=== PATIENT | male | born 1995 | race Caucasian/White ===

== ENCOUNTER 2017-01-28 17:49 | Emergency (ER) | payer OTHER ==
[2017-01-28 18:04] VITALS: BP 130/90
--- NOTE | 2017-01-28 18:46 | ED ---
Back Pain - HPI Summary HPI Summary: 21 male presents with complaints of lower back and tailbone pain after attempting a front flip off of a picnic table just prior to arrival. Patient was brought in by EMS. States he was able to stand and walk after the incident however after about an hour he started to experience increased soreness. Denies neck or head pain/trauma. No LOC. Denies loss of strength and sensation is intact. Denies ecchymosis and deformities. Took Tylenol with some relief about 45 minutes ago. Denies bladder/bowel incontinence and saddle anesthesia. Patient is a resident of [place]. - History of Current Complaint Chief Complaint: EDBackInjuryPain Stated Complaint: BACK PAIN Time Seen by Provider: 01/28/17 18:07 Hx Obtained From: Patient Onset/Duration: Sudden Onset Onset/Duration: Started Hours Ago, Traumatic Timing: Constant Back Pain Location: Is Discrete @ - lower back and tailbone Severity Initially: Mild Severity Currently: Moderate Pain Intensity: 7 Pain Scale Used: 0-10 Numeric Character: Sharp, Aching, Stiffness Aggravating Symptom(s): Movement, Walking Associated Signs And Symptoms: Positive: Negative - Allergies/Home Medications Allergies/Adverse Reactions: Allergies Allergy/AdvReac Type Severity Reaction Status Date / Time No Known Allergies Allergy Verified 05/31/16 12:50 PMH/Surg Hx/FS Hx/Imm Hx Endocrine/Hematology History: Denies: Hx Diabetes, Hx Thyroid Disease Cardiovascular History: Denies: Hx Hypertension Respiratory History: Reports: Hx Sleep Apnea - NO PROBLEMS SINCE TONSILLECTOMY Denies: Hx Asthma, Hx Chronic Obstructive Pulmonary Disease (COPD) GI History: Denies: Hx Ulcer Sensory History: Reports: Hx Contacts or Glasses - GLASSES Denies: Hx Hearing Aid Opthamlomology History: Reports: Hx Contacts or Glasses - GLASSES Neurological History: Reports: Hx Seizures - POSSIBLE ABOUT 2 YEARS AGO, MAY HAVE BEEN AN ANXIETY ATTACK, NO PROBLEMS SI Psychiatric History: Reports: Hx Attention Deficit Hyperactivity Disorder - Surgical History Surgery Procedure, Year, and Place: APPENDECTOMY AGE 2, [place], RT HAND SURGERY Hx Anesthesia Reactions: No Infectious Disease History: No Infectious Disease History: Denies: Hx Hepatitis, Hx Human Immunodeficiency Virus (HIV), Traveled Outside the [place] in Last 30 Days - Family History Known Family History: Positive: Hypertension, Seizure Disorder - Social History Alcohol Use: None Substance Use Type: Reports: None Substance Use Comment - Amount & Last Used: Was in rehab in May 2013, used to smoke marijuana Smoking Status (MU): Light Every Day Tobacco Smoker Type: Cigarettes Amount Used/How Often: 5-10 cigarettes daily Length of Time of Smoking/Using Tobacco: 2.5 years Have You Smoked in the Last Year: Yes Review of Systems Constitutional: Negative Cardiovascular: Negative Respiratory: Negative Gastrointestinal: Negative Positive: Arthralgia, Myalgia - lower back, tailbone Skin: Negative Neurological: Negative Psychological: Normal All Other Systems Reviewed And Are Negative: Yes Physical Exam Triage Information Reviewed: Yes Vital Signs On Initial Exam: Initial Vitals Temp Pulse Resp BP Pulse Ox 98.0 F 80 20 130/90 98 01/28/17 17:59 01/28/17 17:59 01/28/17 17:59 01/28/17 17:59 01/28/17 17:59 Vital Signs Reviewed: Yes Appearance: Positive: Well-Appearing, No Pain Distress, Well-Nourished Skin: Positive: Warm, Skin Color Reflects Adequate Perfusion, Dry Head/Face: Positive: Normal Head/Face Inspection Eyes: Positive: Normal, EOMI, LILIAM, Conjunctiva Clear ENT: Positive: Normal ENT inspection, Hearing grossly normal Neck: Positive: Supple, Nontender, No Lymphadenopathy Respiratory/Lung Sounds: Positive: Clear to Auscultation, Breath Sounds Present Cardiovascular: Positive: Normal, RRR, Pulses are Symmetrical in both Upper and Lower Extremities - 2+ bilateral radial and pedal pulses Abdomen Description: Positive: Nontender Bowel Sounds: Positive: Present Musculoskeletal: Positive: Normal, Strength/ROM Intact - pain with flexion and extension of lumbar spine, however able., Pain @ - on palpation of lumbar spine around L3-S2, Other - no obvious deformities, ecchymosis, step off or crepitus noted. no cervical or thoracic tenderness. sensation intact. strength/sensation intact b/l lower extremities. Negative: Limited @, Interruption @, Edema Left, Edema Right Neurological: Positive: Normal, Sensory/Motor Intact, Alert, Oriented to Person Place, Time, CN Intact II-III, Reflexes Intact, NV Bundle Intact Distally, Normal Gait, Facial Symmetry, Speech Normal Psychiatric: Positive: Normal, Affect/Mood Appropriate - [place] Coma Scale Best Eye Response: 4 - Spontaneous Best Motor Response: 6 - Obeys Commands Best Verbal Response: 5 - Oriented Diagnostics - Vital Signs Vital Signs Temp Pulse Resp BP Pulse Ox 01/28/17 17:59 98.0 F 80 20 130/90 98 - Laboratory Lab Statement: Any lab studies that have been ordered have been reviewed, and results considered in the medical decision making process. - Radiology lumbar spine Xray Interpretation: No Acute Changes - No fracture of the lumbar spine is noted. Radiology Interpretation Completed By: Radiologist sacrum/coccyx Xray Interpretation: No Acute Changes - No fracture of the sacrum is noted. Radiology Interpretation Completed By: Radiologist Back Pain Course/Dx - Course Course Of Treatment: took 2 tylenol before arrival and given ibuprofen before d/ c. x-ray of lumbar and sacral/coccyx obtained and negative. ibuprofen and heat/ ice for pain. aware of worsening signs and symptoms to watch out for. - Diagnoses Differential Diagnosis/HQI/PQRI: Positive: Fracture, Herniated Disc, Strain, Sprain Provider Diagnoses: Low back strain Discharge - Discharge Plan Condition: Stable Disposition: HOME Prescriptions: Ibuprofen TAB* [Motrin TAB* 600 MG] 600 mg PO Q6H PRN #25 tab PRN Reason: Pain Patient Education Materials: Low Back Strain (ED) Referrals: Devante Sampson MD [Primary Care Provider] - Additional Instructions: Take prescribed Ibuprofen to help with pain and inflammation. Ice/Heat as needed and rest. Encourage to refrain from strenuous physical activity until symptoms have subsided. You back will probably continue to become more sore and then progressively should get better. Recommend follow up with PCP to ensure proper healing and if symptoms persist can obtain further imaging. If you pain increases, or you develop new symptoms such as numbness/tingling of your legs and inner thighs or trouble going to the bathroom please seek medical attention immediately.
[2017-01-28] MEDS ORDERED: Ibuprofen TAB* 400 MG ONE (20:01)
[2017-01-28] MEDS ORDERED: Ibuprofen TAB* 400 MG PO ONE (20:03)
--- NOTE | 2017-01-28 20:26 | RAD ---
Indication indication: Back pain. 5 views of the lumbar spine are reviewed. The vertebral bodies appear normal in height. Disc spaces all well-preserved. Pedicles appear intact. IMPRESSION: No fracture of the lumbar spine is noted.
--- NOTE | 2017-01-28 20:27 | RAD ---
Indication: Sacrum and coccyx pain. 2 views of the sacrum and coccyx demonstrates sacral foramina to be patent. No fracture is noted. IMPRESSION: No fracture of the sacrum is noted.
== END 2017-01-28 20:52 | disposition home or self-care (01) ==
LOC: ED 17:49
DX: S39.012A Strain of muscle, fascia and tendon of lower back, initial encounter (principal); M54.5 Low back pain; F17.210 Nicotine dependence, cigarettes, uncomplicated; W08.XXXA Fall from other furniture, initial encounter; Y93.89 Activity, other specified; Y92.89 Other specified places as the place of occurrence of the external cause
CPT/HCPCS: 72110; 72220; 99282; A9270-GY

== ENCOUNTER 2018-01-05 11:37 | Emergency (ER) | payer MEDICAID, OTHER ==
[2018-01-05 11:55] VITALS: BP 129/84
--- NOTE | 2018-01-05 12:00 | UC ---
Skin Complaint HPI - HPI Summary HPI Summary: Pt presents with right arm pain, swelling, and redness since last night. He tells me that he uses IV drugs and has had a skin abscess before - this feels similar. He tries to use clean needles as often as possible, but does reuse at times. He is not interested in quitting today. He denies drainage, bleeding, numbness, or tingling. - History of Current Complaint Hx Obtained From: Patient Onset/Duration: Sudden Onset Skin Exposure Onset/Duration: Days Ago Timing: Constant Onset Severity: Mild Current Severity: Mild Pain Intensity: 4 Pain Scale Used: 0-10 Numeric <Addy Martinez - Last Filed: 01/05/18 14:53> <Lynn Haywood - Last Filed: 01/07/18 08:49> - History of Current Complaint Chief Complaint: UCUpperExtremity Stated Complaint: RED SWOLLEN AREA ON ARM - Allergy/Home Medications Allergies/Adverse Reactions: Allergies Allergy/AdvReac Type Severity Reaction Status Date / Time No Known Allergies Allergy Verified 01/05/18 11:46 Review of Systems Constitutional: Negative Skin: Other - Redness, swelling, pain right arm Respiratory: Negative Cardiovascular: Negative Gastrointestinal: Negative Neurological: Negative Psychological: Negative All Other Systems Reviewed And Are Negative: Yes <Addy Martinez - Last Filed: 01/05/18 14:53> PMH/Surg Hx/FS Hx/Imm Hx Previously Healthy: Yes - Surgical History Surgical History: Yes Surgery Procedure, Year, and Place: APPENDECTOMY AGE 2, [place], RT HAND SURGERY - Family History Known Family History: Positive: Hypertension, Seizure Disorder - Social History Lives: With Family Alcohol Use: None Substance Use Type: Other 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, Denise (E) Smoking Status (MU): Light Every Day Tobacco Smoker Type: Cigarettes Amount Used/How Often: 5-10 cigarettes daily Length of Time of Smoking/Using Tobacco: 2.5 years Have You Smoked in the Last Year: Yes Household Exposure Type: Cigarettes - Immunization History Most Recent Tetanus Shot: UNKNOWN Vaccination Up to Date: Yes <Addy Martinez - Last Filed: 01/05/18 14:53> Physical Exam Triage Information Reviewed: Yes Appearance: Well-Appearing, No Pain Distress, Well-Nourished Vital Signs: Initial Vital Signs Temp 97 F 01/05/18 11:49 Pulse 88 01/05/18 11:49 Resp 20 01/05/18 11:49 BP 129/84 01/05/18 11:49 Pulse Ox 98 01/05/18 11:49 Vital Signs Reviewed: Yes Neck: Positive: Supple, Nontender, No Lymphadenopathy Respiratory: Positive: Lungs clear, Normal breath sounds, No respiratory distress, No accessory muscle use Cardiovascular: Positive: RRR, No Murmur, Pulses Normal - Right radial and ulnar , Brisk Capillary Refill - Right hand and all fingers Musculoskeletal: Positive: Strength Intact - Right elbow, ROM Intact - Right elbow Neurological: Positive: Alert Psychological: Positive: Age Appropriate Behavior Skin: Positive: Other - At the right medical AC there is an area of mild erythema, edema, and tenderness extending down to the proximal 1/3 of the forearm. At the central most part there is a 1.0cm area of fluctuation under the skin. No induration, open sores, bleeding, or streaking. <Addy Martinez - Last Filed: 01/05/18 14:53> Vital Signs: Initial Vital Signs Temp 97 F 01/05/18 11:49 Pulse 88 01/05/18 11:49 Resp 20 01/05/18 11:49 BP 129/84 01/05/18 11:49 Pulse Ox 98 01/05/18 11:49 <Lynn Haywood - Last Filed: 01/07/18 08:49> Course/Dx - Course Course Of Treatment: Right arm abscess due to IV drug use. Will cover him with Augmentin. The area of erythema was marked with a purple marking pen and pt was advised to seek medical care if redness/edema extend beyond these margins. - Diagnoses Provider Diagnoses: Right arm cellulitis. Right arm abscess. IV drug use <Addy Martinez - Last Filed: 01/05/18 14:53> Discharge <Addy Martinez - Last Filed: 01/05/18 14:53> <Lynn Haywood - Last Filed: 01/07/18 08:49> - Discharge Plan Condition: Stable Disposition: HOME Prescriptions: Amoxicillin/Clavulanate TAB* [Augmentin TAB 875*] 875 mg PO BID #20 tab Patient Education Materials: Abscess (ED), Warm Compress or Soak (ED) Referrals: Elvi Jacob MD [Primary Care Provider] - Additional Instructions: If you develop a fever, shortness of breath, chest pain, new or worsening symptoms - please call your PCP or go to the ED. Your blood pressure was mildly elevated at todays visit. Please see your primary provider within 4 weeks for recheck and re-evaluation. 1) Please monitor the area and the markings from today's visit - if you notice the redness/swelling/pain increase despite taking the antibiotic or if you develop a fever or chills - please go directly to the ED Attestation Statement User Type: Provider - I was available for consult. This patient was seen by the [facility]. The patient was not presented to, seen by, or examined by me. Jeet <Lynn Haywood - Last Filed: 01/07/18 08:49>
== END 2018-01-05 12:17 | disposition home or self-care (01) ==
LOC: UCEAST 11:37
DX: L03.113 Cellulitis of right upper limb (principal); L02.413 Cutaneous abscess of right upper limb; F11.90 Opioid use, unspecified, uncomplicated; F19.90 Other psychoactive substance use, unspecified, uncomplicated; F17.210 Nicotine dependence, cigarettes, uncomplicated
CPT/HCPCS: 99212; G0463

== ENCOUNTER 2018-11-27 13:28 | Emergency (ER) | payer OTHER ==
[2018-11-27 13:43] VITALS: BP 160/94
--- NOTE | 2018-11-27 13:45 | UC ---
Skin Complaint HPI - HPI Summary HPI Summary: History of cellulitis/abscess almost one year ago at an injection site; over the past 48 hours he has had increasing erythema and induration in the area. History of hepatitis C, diagnosed during rehabilitation program, and not yet being treated. He is uncertain of the status of his liver function. - History of Current Complaint Chief Complaint: UCSkin Time Seen by Provider: 11/27/18 13:38 Stated Complaint: SKIN ISSUE Hx Obtained From: Patient Onset/Duration: Gradual Onset, Lasting Days - 2 Skin Exposure Onset/Duration: Weeks Ago Timing: Constant Onset Severity: Moderate Current Severity: Moderate Pain Intensity: 5 Location: Discrete Aggravating Factor(s): Touch Alleviating Factor(s): Nothing Associated Signs & Symptoms: Positive: Tenderness - Allergy/Home Medications Allergies/Adverse Reactions: Allergies Allergy/AdvReac Type Severity Reaction Status Date / Time No Known Allergies Allergy Verified 11/27/18 13:37 Home Medications: Home Medications Penicillin VK 500 MG TAB(NF) [Penicillin VK 500 mg Tab] 1 tab PO ONCE 11/27/18 [ History Confirmed 11/27/18] PMH/Surg Hx/FS Hx/Imm Hx - Additional Past Medical History Additional PMH: hepatitis C; obesity; possibly hypertension Cardiovascular History: Hypertension - never treated in the past, but aware that blood pressure runs high. 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 Eyes: Positive: Negative ENT: Positive: Negative Respiratory: Positive: Negative Cardiovascular: Positive: Negative Gastrointestinal: Positive: Other - known hepatitis C, untreated at this time. Genitourinary: Positive: Negative Motor: Positive: Negative Neurovascular: Positive: Negative Musculoskeletal: Positive: Negative Neurological: Positive: Negative Psychological: Positive: Negative Is Patient Immunocompromised?: No Physical Exam Triage Information Reviewed: Yes Appearance: Well-Appearing, Pain Distress - mild to moderate., Obese Vital Signs: Initial Vital Signs Temp 98.2 F 11/27/18 13:34 Pulse 110 11/27/18 13:34 Resp 18 11/27/18 13:34 BP 160/94 11/27/18 13:34 Pulse Ox 97 11/27/18 13:34 Eyes: Positive: Conjunctiva Clear ENT: Positive: Pharynx normal Neck: Positive: Supple, Nontender, No Lymphadenopathy Respiratory: Positive: Lungs clear, Normal breath sounds Cardiovascular: Positive: RRR, No Murmur Musculoskeletal Exam: Normal Neurological: Positive: Alert, Muscle Tone Normal Psychological Exam: Normal Skin Exam: Other - 9 x 8 cm area of induratation and erythema medial antecubital area. Course/Dx - Course Course Of Treatment: augmentin for treatment of cellulitis. - Differential Diagnoses - Skin Complaint Differential Diagnoses: Abscess, Cellulitis - Diagnoses Provider Diagnosis: Cellulitis of right arm Discharge - Sign-Out/Discharge Documenting (check all that apply): Patient Departure All imaging exams completed and their final reports reviewed: No Studies - Discharge Plan Condition: Stable Disposition: HOME Prescriptions: Amoxicillin/Clavulanate TAB* [Augmentin TAB 875*] 875 mg PO BID #14 tab Patient Education Materials: Cellulitis (ED) Referrals: Elvi Jacob MD [Primary Care Provider] - Additional Instructions: Compress the area of infection on your right arm with hot moist compresses for 10 minutes 3 or 4 times per day. If an abscess begins to form, please return for re-evaluation. Your blood pressure is elevated today: please ensure that you have this followed up within 2 weeks. Ensure that you take the full course of antibiotics. - Billing Disposition and Condition Condition: STABLE Disposition: Home
== END 2018-11-27 14:16 | disposition home or self-care (01) ==
LOC: UCEAST 13:28
DX: L03.113 Cellulitis of right upper limb (principal); F17.210 Nicotine dependence, cigarettes, uncomplicated
CPT/HCPCS: 99212; G0463

== ENCOUNTER 2020-02-12 15:45 | Emergency (ER) | payer OTHER ==
[2020-02-12 16:00] VITALS: BP 160/96
--- NOTE | 2020-02-12 16:33 | UC ---
General HPI - HPI Summary HPI Summary: 24-year-old male presents for a large nontender mass to his right axilla. States he awoke 3 days ago and discovered the mass. Has not changed in size since that time. Has history of abscesses in the past that were related to IV drug use. States he has been sober for the past 2 years. Denies fever, chills , night sweats, unintentional weight loss, recent cat scratch, breast tenderness , discharge from the nipple, or any other skin lesions. - History of Current Complaint Chief Complaint: UCGeneralIllness Stated Complaint: LUMP UNDER ARMPIT Time Seen by Provider: 02/12/20 15:47 Hx Obtained From: Patient Pain Intensity: 0 - Allergy/Home Medications Allergies/Adverse Reactions: Allergies Allergy/AdvReac Type Severity Reaction Status Date / Time No Known Allergies Allergy Verified 02/12/20 16:00 Home Medications: Home Medications NK [No Home Medications Reported] 02/12/20 [History Confirmed 02/12/20] PMH/Surg Hx/FS Hx/Imm Hx - Additional Past Medical History Additional PMH: Hepatitis C - Surgical History Surgical History: Yes Surgery Procedure, Year, and Place: APPENDECTOMY AGE 2, [place], RT HAND SURGERY - Family History Known Family History: Positive: Hypertension, Seizure Disorder - Social History Occupation: Unemployed Lives: With Family Alcohol Use: None Substance Use Type: Marijuana 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, 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 Smoking Status (MU): Light Every Day Tobacco Smoker Type: Cigarettes Amount Used/How Often: 5-10 cigarettes daily Length of Time of Smoking/Using Tobacco: 2.5 years Have You Smoked in the Last Year: Yes Household Exposure Type: Cigarettes - Immunization History Most Recent Tetanus Shot: UNKNOWN Vaccination Up to Date: Yes Review of Systems All Other Systems Reviewed And Are Negative: Yes Constitutional: Negative: Fever, Chills, Fatigue Skin: Negative: Rash, Other - Skin lesions Respiratory: Negative: Shortness Of Breath, Cough Cardiovascular: Negative: Palpitations, Chest Pain Gastrointestinal: Positive: Negative Genitourinary: Positive: Negative Musculoskeletal: Positive: Negative Neurological/Mental Status: Positive: Negative Is Patient Immunocompromised?: No Physical Exam - Summary Physical Exam Summary: GENERAL APPEARANCE: Alert and cooperative obese, adult male who appears to be in no acute distress. EYES: Conjunctiva clear. No drainage. EARS: External auditory canals and tympanic membranes clear, hearing grossly intact. NOSE: No nasal discharge. THROAT: Pharynx normal. No tonsilar inflammation, swelling, exudate, or lesions. Uvula midline. NECK: Neck supple, non-tender without lymphadenopathy. BREAST: No breast tenderness, mass, or nipple discharge. Axilla: Single soft, mobile, well circumscribed 6 cm cystic lesion without erythema, tenderness, or induration to the right axilla. CARDIAC: Normal S1 and S2. No S3, S4 or murmurs. Rhythm is regular. There is no peripheral edema, cyanosis or pallor. Extremities are warm and well perfused. Capillary refill is less than 2 seconds. Peripheral pulses intact. LUNGS: Clear to auscultation without rales, rhonchi, wheezing or diminished breath sounds. ABDOMEN: Positive bowel sounds. Soft, nondistended, nontender. No guarding or rebound. No masses or hepatosplenomegally. MUSKULOSKELETAL: ROM intact to all extremities. No joint erythema or tenderness. Normal muscular development. Normal gait. SKIN: Skin normal color, texture and turgor with no lesions or eruptions. Triage Information Reviewed: Yes Vital Signs: Initial Vital Signs Temp 98.5 F 02/12/20 15:57 Pulse 90 02/12/20 15:57 Resp 18 02/12/20 15:57 BP 160/96 02/12/20 15:57 Pulse Ox 99 02/12/20 15:57 Vital Signs Reviewed: Yes Course/Dx - Course Course Of Treatment: 24-year-old male presents for a large nontender mass to his right axilla. States he awoke 3 days ago and discovered the mass. Has not changed in size since that time. Has history of abscesses in the past that were related to IV drug use. States he has been sober for the past 2 years. Denies fever, chills , night sweats, unintentional weight loss, recent cat scratch, breast tenderness , discharge from the nipple, or any other skin lesions. Afebrile. Hypertensive was signs stable. Patient had a single soft, mobile, well circumscribed 6 cm cystic lesion without erythema, tenderness, or induration to the right axilla and otherwise unremarkable exam. Discussed with patient that I am unsure with her the lesion represents an enlarged lymph node versus a cystic lesion and unfortunately do not have ultrasound available at this time for further evaluation. Because the patient is afebrile, in no acute distress, and the lesion does not appear to be from an infectious procecss I do not believe that it requires an emergent evaluation and have recommended that he return tomorrow when ultrasound is available. I'll obtain a CBC and CMP today so we will hopefully have those results to review when he returns tomorrow. Anticipatory guidance and warning symptoms requiring immediate evaluation in the emergency were reviewed with the patient. He verbalizes understanding and agrees with plan of care. - Differential Dx - Multi-Symptom Differential Diagnoses: Other - Lymphadenpathy, maligniancy, cat scratch fever - Diagnoses Provider Diagnosis: Axillary lymphadenopathy Discharge ED - Sign-Out/Discharge Documenting (check all that apply): Patient Departure All imaging exams completed and their final reports reviewed: No Studies - Discharge Plan Condition: Stable Disposition: HOME Patient Education Materials: Lymphadenopathy (ED) Referrals: No Primary Care Phys,NOPCP [Primary Care Provider] - Additional Instructions: I am unsure at this time whether the lesion your armpit is a swollen lymph node or other possible cystic lesion and we do not have ultrasound available at this time. Since you are not running any fever or having any discomfort I'm recommending that you return tomorrow so that we can obtain an ultrasound at that time. We jaimee some blood work today and should be able to review this when he return tomorrow. Please return tomorrow between 10 AM and 2 PM as I will be at the clinic and he will to arrange for ultrasound at that time. Seek immediate medical attention in the emergency room if you develop a fever greater than 100.5 F, the lesion rapidly grows, he developed severe pain, or have any worsening of symptoms. - Billing Disposition and Condition Condition: STABLE Disposition: Home
[2020-02-12 18:28] LABS: Calcium 9.1 mg/dL (8.6-10.3); Potassium 4.3 mmol/L (3.5-5.0); Total Bilirubin 0.3 mg/dL (0.2-1.0)
[2020-02-12 18:33] LABS: ABS Basophils 0.1 10^3/ul (0-0.2); ABS Eosinophils 0.3 10^3/ul (0-0.6); ABS Monocytes 0.9 10^3/ul (0-0.8); ABS Neutrophils 5.7 10^3/ul (1.5-7.7); Eosinophil % 2.7 %; Hematocrit 43 % (42-52); Hemoglobin 15.2 g/dL (14.0-18.0); Mean Corpuscular HGB Conc 36 g/dL (31-36); Mean Corpuscular Hemoglobin 30 pg (27-31); Mean Corpuscular Volume 83 fL (80-94); Mean Platelet Volume 7.9 fL (7.4-10.4); Platelet Count 343 10^3/uL (150-450); Red Blood Count 5.16 10^6 /uL (4.18-5.48); Red Cell Distribution Width 14 % (10-15); White Blood Count 9.9 10^3/uL (3.5-10.8)
[2020-02-12 18:34] LABS: Albumin/Globulin Ratio 1.3 (1-3); BUN/Creatinine Ratio 11.1 (8-20); EGFR African American 163.7 (>60); EGFR Non-African American 135.3 (>60); Globulin 3.2 g/dL (2-4); Total Protein 7.2 g/dL (6.4-8.9)
== END 2020-02-12 16:42 | disposition home or self-care (01) ==
LOC: UCEAST 15:45
DX: R59.0 Localized enlarged lymph nodes (principal); F17.210 Nicotine dependence, cigarettes, uncomplicated
CPT/HCPCS: 36415; 80053; 85025; 99211; G0463

== ENCOUNTER 2020-02-13 13:04 | Emergency (ER) | payer OTHER ==
[2020-02-13 13:14] VITALS: BP 147/87
--- NOTE | 2020-02-13 13:33 | UC ---
General HPI - HPI Summary HPI Summary: 21-year-old male who was seen by myself at this facility yesterday for a large nontender mass to his right axilla returns for ultrasound evaluation of the mass. States it is unchanged since previous exam and he remains afebrile. - History of Current Complaint Chief Complaint: UCSkin Stated Complaint: ARM COMPLAINT Time Seen by Provider: 02/13/20 13:05 Hx Obtained From: Patient Pain Intensity: 0 - Allergy/Home Medications Allergies/Adverse Reactions: Allergies Allergy/AdvReac Type Severity Reaction Status Date / Time No Known Allergies Allergy Verified 02/13/20 13:09 Home Medications: Home Medications NK [No Home Medications Reported] 02/12/20 [History Confirmed 02/13/20] PMH/Surg Hx/FS Hx/Imm Hx - Additional Past Medical History Additional PMH: Hepatitis C - Surgical History Surgical History: Yes Surgery Procedure, Year, and Place: APPENDECTOMY AGE 2, [place], RT HAND SURGERY - Family History Known Family History: Positive: Hypertension, Seizure Disorder - Social History Occupation: Unemployed Lives: With Family Alcohol Use: None Substance Use Type: Marijuana 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, 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 Smoking Status (MU): Light Every Day Tobacco Smoker Type: Cigarettes Amount Used/How Often: 5-10 cigarettes daily Length of Time of Smoking/Using Tobacco: 2.5 years Have You Smoked in the Last Year: Yes Household Exposure Type: Cigarettes - Immunization History Most Recent Tetanus Shot: UNKNOWN Vaccination Up to Date: Yes Review of Systems All Other Systems Reviewed And Are Negative: Yes Constitutional: Negative: Fever, Chills Skin: Positive: Negative Respiratory: Positive: Negative Cardiovascular: Positive: Negative Gastrointestinal: Positive: Negative Genitourinary: Positive: Negative Musculoskeletal: Positive: Negative Neurological/Mental Status: Positive: Negative Is Patient Immunocompromised?: No Physical Exam - Summary Physical Exam Summary: GENERAL APPEARANCE: Alert and cooperative obese, adult male who appears to be in no acute distress. NECK: Neck supple, non-tender without lymphadenopathy. BREAST: No breast tenderness, mass, or nipple discharge. Axilla: Single soft, mobile, well circumscribed 6 cm cystic lesion without erythema, tenderness, or induration to the right axilla. CARDIAC: Normal S1 and S2. No S3, S4 or murmurs. Rhythm is regular. There is no peripheral edema, cyanosis or pallor. Extremities are warm and well perfused. Capillary refill is less than 2 seconds. Peripheral pulses intact. LUNGS: Clear to auscultation without rales, rhonchi, wheezing or diminished breath sounds. ABDOMEN: Positive bowel sounds. Soft, nondistended, nontender. No guarding or rebound. No masses or hepatosplenomegally. MUSKULOSKELETAL: ROM intact to all extremities. No joint erythema or tenderness. Normal muscular development. Normal gait. SKIN: Skin normal color, texture and turgor with no lesions or eruptions. Triage Information Reviewed: Yes Vital Signs: Initial Vital Signs Temp 97.1 F 02/13/20 13:07 Pulse 102 02/13/20 13:07 Resp 20 02/13/20 13:07 BP 147/87 02/13/20 13: Pulse Ox 98 02/13/20 13:07 Vital Signs Reviewed: Yes Diagnostics - Radiology No standard instances Radiology Interpretation Completed By: Radiologist Summary of Radiographic Findings: Order Information: US SOFT TISSUE LIMITED EXT- RT. Indication: Nontender palpable lump RIGHT axilla for 5 days. Comparison: No relevant prior exams available on the [facility] for comparison. Technique: Ultrasound of the RIGHT axilla corresponding to the region of clinical concern as directed by the patient. REPORT AND IMPRESSION: #. 5.8 x 4.2 x 6.2 cm lesion is most suggestive of a significantly enlarged lymph node corresponding with the palpable lump with peripheral heterogeneously hypodense cortex and central fatty vicenta and hilar vessels on Doppler. No adjacent lesions evident. Consider both reactive and neoplastic related lymphadenopathy. Correlate with clinical and laboratory data and consider fine-needle aspiration for pathologic assessment if deemed appropriate. Course/Dx - Course Course Of Treatment: 21-year-old male who was seen by myself at this facility yesterday for a large nontender mass to his right axilla returns for ultrasound evaluation of the mass. States it is unchanged since previous exam and he remains fever free. He is afebrile in the clinic. Mildly hypertensive and tachycardic otherwise vital signs stable. His exam remains unchanged from previous. I reviewed the lab work that was drawn yesterday with the patient. CBC was normal. He had of mildly elevated alkaline phosphatase otherwise the remainder of his CMP was within normal limits. Soft tissue US shows a 5.8 x 4.2 x 6.2 cm lesion suggestive of an enlarged lymph node of reactive vs neoplastic related lymphadenopathy. Reviewed results with patient. Patient is to make an appointment with general surgery to schedule evaluation and biopsy. I did send all the related notes, labs, and ultrasound reports to Dr. Currie's office. Anticipatory guidance and warning symptoms are reviewed with the patient. Verbalizes understanding and agrees with plan of care. - Differential Dx - Multi-Symptom Differential Diagnoses: Other - Lymphadenopathy, malignancy, cat scratch fever - Diagnoses Provider Diagnosis: Axillary lymphadenopathy Discharge ED - Sign-Out/Discharge Documenting (check all that apply): Patient Departure All imaging exams completed and their final reports reviewed: Yes - Discharge Plan Condition: Stable Disposition: HOME Patient Education Materials: Lymphadenopathy (ED) Referrals: No Primary Care Phys,NOPCP [Primary Care Provider] - Amador Falcon MD [Medical Doctor] - 7 Days (Call today for an appointment.) Additional Instructions: The lab work without reperformed yesterday was within normal limits. The ultrasound performed in the clinic today showed what appears to be an enlarged lymph node. I am unsure of the exact cause of this enlargement and it is recommended that you have a biopsy performed. Follow-up with Gen. surgery within one week for further evaluation and discussion of biopsy. Call today for an appointment. Seek immediate medical attention in the emergency room if you develop a fever greater than 100.5 F, the lesion rapidly grows, you developed severe pain, or have any worsening of symptoms. - Billing Disposition and Condition Condition: STABLE Disposition: Home
== END 2020-02-13 14:28 | disposition home or self-care (01) ==
LOC: UCEAST 13:04
DX: R59.0 Localized enlarged lymph nodes (principal); F17.210 Nicotine dependence, cigarettes, uncomplicated
CPT/HCPCS: 99211; G0463